=== PATIENT | female | born 1970 | race Caucasian/White ===

== ENCOUNTER 2023-10-04 14:26 | Outpatient (CLI) | payer OTHER ==
[2023-10-04 15:44] LABS: INR-International Normal Ratio 0.9; Prothrombin Time 12.3 sec (12.0-14.7)
[2023-10-04 15:45] LABS: ALT (SGPT) 79 U/L (8-55); AST (SGOT) 71 U/L (5-34); Albumin 3.5 g/dL (3.5-5.0); Alkaline Phosphatase 197 U/L (40-110); Anion Gap 15 mmol/L (10-20); BUN (Urea Nitrogen) 16 mg/dL (9.8-20.1); Bilirubin, Total 1.3 mg/dL (0.2-1.2); Calc. Creatinine Clearance 0 mL/min (70-130); Calcium 8.5 mg/dL (7.8-10.44); Carbon Dioxide 19 mmol/L (22-29); Chloride 107 mmol/L (98-107); Estimated GFR 70; Globulin 3.4 g/dL (2.4-3.5); Glucose 88 mg/dL (70-105); Potassium 3.2 mmol/L (3.5-5.1); Protein, Total 6.9 g/dL (6.0-8.3); Sodium 138 mmol/L (136-145)
== END 2023-10-04 14:27 | disposition home or self-care (01) ==
LOC: NAV LAB 14:26
PROVIDERS: ATTEND Family Medicine
DX: K75.4 Autoimmune hepatitis (principal); K74.5 Biliary cirrhosis, unspecified
CPT/HCPCS: 36415; 80053; 85610